=== PATIENT | female | born 1975 | race Caucasian/White ===

== ENCOUNTER 2025-02-01 20:02 | Emergency (ER) | payer BC, MEDICAID ==
[~2025-02-01] VITALS: Ht 167.6 cm; Wt 61.2 kg
[2025-02-01] MEDS ORDERED: TDAP [DIPH/PERTUSSIS/TET] 0.5 ML VIAL IM ONE (20:35)
[2025-02-01] MEDS: TDAP [DIPH/PERTUSSIS/TET] 0.5 ML VIAL IM ONE (20:41)
[2025-02-01] MEDS ORDERED: LIDOCAINE HCL/MPF 1% 30 ML VIAL IJ ONE (20:46)
[2025-02-01] MEDS: LIDOCAINE HCL/PF 1% 30 ML VIAL TP ONE (21:04)
[2025-02-01] MEDS ORDERED: IBUP-1490 PO (21:29)
[2025-02-01] MEDS ORDERED: BACI28.433 TP (21:29)
[2025-02-01] MEDS: BACITRACIN ZINC OINT PACKET 1 EA PACKET TP ONE (21:40)
[2025-02-01] MEDS ORDERED: IBUPROFEN 600 MG TABLET ONE (21:45)
[2025-02-01] MEDS: IBUPROFEN 600 MG TABLET PO ONE (21:46)
[2025-02-01 21:51] VITALS: BP 119/78; TEMP 98.2; O2SAT 98
[2025-02-02] MEDS ORDERED: BACI28.433 TP (09:36)
[2025-02-02] MEDS ORDERED: IBUP-1490 PO (09:36)
== END 2025-02-01 21:52 | disposition home or self-care (01) ==
LOC: ER 20:13
DX: S61.211A Laceration without foreign body of left index finger without damage to nail, initial encounter (principal); S61.210A Laceration without foreign body of right index finger without damage to nail, initial encounter; Z60.2 Problems related to living alone; W25.XXXA Contact with sharp glass, initial encounter; Y93.89 Activity, other specified; Y92.89 Other specified places as the place of occurrence of the external cause; Y99.9 Unspecified external cause status
CPT/HCPCS: 12001; 90471; 90715; 99283; J3490